=== PATIENT | female | born 1945 | race Caucasian/White ===

== ENCOUNTER → 2024-03-11 | Outpatient (CLI) | payer MEDICARE, OTHER, SELFPAY ==
[2024-03-11 17:54] LABS: Amphetamine/Methamp Scrn,U Negative (Negative); Barbiturate Screen,Urine Negative (Negative); Benzodiazepines Screen,Urine Negative (Negative); Benzoylecgonine Screen, Ur Negative (Negative); Fentanyl Screen,Urine Negative (Negative); Opiate Screen,Urine Negative (Negative); THC Screen,Urine Negative (Negative)
== END | disposition home or self-care (01) ==
PROVIDERS: PCP Family Medicine; Referring Provider Family Medicine; Visit Provider Family Medicine
DX: Z79.891 Long term (current) use of opiate analgesic (principal)
CPT/HCPCS: 80307

== ENCOUNTER → 2024-03-16 | Outpatient (CLI) | payer MEDICARE, OTHER, SELFPAY ==
[2024-03-16 07:48] LABS: Collection Type, Urine Clean Catch
[2024-03-16 08:55] LABS: Basophils # (Auto) 0.1 Thou/mm3 (0.0-0.2); Basophils % (Auto) 1 % (0-2.5); Eosinophils # (Auto) 0.2 Thou/mm3 (0.0-0.5); Eosinophils % (Auto) 3 % (0-10); Hematocrit 30.8 % (36.0-46.0); Hemoglobin 9.6 g/dL (12.0-16.0); Immature Granulocytes % (Auto) 0 % (0-0); Immature Granulocytes Auto 0.03 Thou/mm3 (0.00-0.00); Lymphocytes # (Auto) 3.1 Thou/mm3 (1.0-4.8); Lymphocytes % (Auto) 41 % (10-50); Mean Corpuscular HGB Conc 31.2 g/dl (31.0-37.0); Mean Corpuscular Volume 71 fL (80-100); Monocytes # (Auto) 0.7 Thou/mm3 (0.0-0.8); Monocytes % (Auto) 10 % (0-12); Neutrophils # (Auto) 3.4 Thou/mm3 (1.8-7.7); Neutrophils % (Auto) 45 % (37-80); Nucleated Red Blood Cell % 0 /100 WBC (0); Platelet Count 434 Thou/mm3 (140-440); RDW Standard Deviation 44.8 fL (36.4-46.3); Red Blood Count 4.36 Miln/mm3 (4.00-5.20); White Blood Count 7.5 Thou/mm3 (3.6-11.0)
[2024-03-16 09:16] LABS: Bilirubin,Urine Negative (Negative); Blood,Urine Negative (Negative); Clarity,Urine Clear (Clear/Hazy); Color,Urine Lt-Yellow (Lt Yel-Yel); Glucose, Urine Negative (Negative); Ketones,Urine Negative (Negative); Leukocyte Esterase,Urine Negative (Negative); Nitrite,Urine Negative (Negative); PH,Urine 6.5 (5.0-7.0); Protein,Urine Negative (Neg - Trace); Specific Gravity,Urine 1.014 (1.001-1.035); Urobilinogen,Urine Negative mg/dL (0.0-1.0)
[2024-03-16 09:17] LABS: Bacteria,Urine 1+; RBC,Urine 1 /hpf (0-3); Squamous Epithelial Cell,Urine 2 /hpf (0-5); WBC,Urine 3 /hpf (0-5)
[2024-03-16 09:20] LABS: Glucose Estimated Average 131 mg/dL (80-131); Hemoglobin A1C 6.2 % Hgb (4.8-6.0)
[2024-03-16 09:20] LABS: Culture Indicated,Urine Yes
[2024-03-16 09:34] LABS: Alanine Aminotransferase 15 U/L (10-49); Albumin, Serum 4.6 gm/dL (3.4-4.8); Albumin/Globulin Ratio 1.8 (1.2-2.2); Alkaline Phosphatase 47 U/L (46-116); Anion Gap 9 (7-16); Aspartate Amino Transferase 22 U/L (0-34); BUN/Creatinine Ratio 19 Ratio (12-20); Bilirubin,Total 0.4 mg/dL (0.3-1.2); Blood Urea Nitrogen 17 mg/dL (9-23); Calcium 9.8 mg/dL (8.3-10.6); Calcium (Corrected) 9.8 mg/dL (8.5-10.1); Carbon Dioxide 26.5 mMol/L (20.0-31.0); Cardiac Risk Estimate 2.5 RATIO (3.7-5.6); Chloride 100 mMol/L (98-107); Cholesterol 142 mg/dL (132-200); Creatinine (Component) 0.9 mg/dL (0.6-1.3); Free T4 (Free Thyroxine) 1.39 ng/dL (0.89-1.76); Globulin 2.5 gm/dL (2.3-3.5); Glucose 96 mg/dL (74-106); HDL Cholesterol 56 mg/dL (40-60); LDL Cholesterol,Calculated 59 mg/dL (0-130); Osmolality,Calculated 271 (275-295); Potassium 3.7 mMol/L (3.4-5.1); Sodium 135 mMol/L (136-145); Thyroid Stimulating Hormone 3.25 uIU/mL (0.55-4.78); Total Protein 7.1 gm/dL (5.7-8.2); Triglycerides 136 mg/dL (30-150); eGFR > 60 See Note
[2024-03-19 07:00] LABS: T3,Total* 101 ng/dL (76-181)
[2024-03-22 06:43] LABS: Fecal Globin Result NOT DETECTED (NOT DETECTED)
== END | disposition home or self-care (01) ==
PROVIDERS: PCP Family Medicine; Referring Provider Physician Assistant; Visit Provider Physician Assistant
DX: E03.9 Hypothyroidism, unspecified (principal)
CPT/HCPCS: 36415; 80053; 80061; 81001; 82274; 83036; 84439; 84443; 84480; 85025; 87077; 87086; 87186; G0328

== ENCOUNTER 2024-07-12 15:18 | Emergency (ER) | payer MEDICARE, SELFPAY ==
[2024-07-12 15:21] VITALS: BP 129/78; PULSE 77; RESP 19; TEMP 36.9; O2SAT 95
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
--- NOTE | 2024-07-12 15:46 | EKG_ITS ---
[facility] Test Date: 2024-07-12 Pat Name: DAVID LIUS Department: Room: - Gender: Female Production Grip: : 1945 Requested By: Juan Escamilla Order Number: [id number] Reading MD: Juan Escamilla Measurements Intervals [place] Rate: 75 P: -12 [place]: 192 QRS: 10 QRSD: 153 T: 21 QT: 434 QTc: 487 Interpretive Statements SINUS RHYTHM WITH OCCASIONAL SUPRAVENTRICULAR PREMATURE COMPLEXES RIGHT BUNDLE BRANCH BLOCK [120+ ms QRS DURATION, UPRIGHT V1, 40+ ms S IN I/aVL/V4/V5/V6] Compared to ECG 07/27/2021 20:07:30 First degree AV block no longer present Indeterminate axis no longer present /store/S0/[id number].pdf
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
[2024-07-12] MEDS: MORPHINE SULF INJ 10 MG/ML VIAL 4 MG IVP (15:55)
[2024-07-12 16:00] VITALS: BMI 25.0
[2024-07-12 16:16] LABS: Basophils # (Auto) 0.1 Thou/mm3 (0.0-0.2); Basophils % (Auto) 1 % (0-2.5); Eosinophils # (Auto) 0.2 Thou/mm3 (0.0-0.5); Eosinophils % (Auto) 3 % (0-10); Hematocrit 27.1 % (36.0-46.0); Immature Granulocytes % (Auto) 0 % (0-0); Immature Granulocytes Auto 0.02 Thou/mm3 (0.00-0.00); Lymphocytes # (Auto) 2.6 Thou/mm3 (1.0-4.8); Lymphocytes % (Auto) 36 % (10-50); Mean Corpuscular HGB Conc 30.3 g/dl (31.0-37.0); Mean Corpuscular Volume 69 fL (80-100); Monocytes # (Auto) 0.7 Thou/mm3 (0.0-0.8); Monocytes % (Auto) 10 % (0-12); Neutrophils # (Auto) 3.5 Thou/mm3 (1.8-7.7); Neutrophils % (Auto) 49 % (37-80); Nucleated Red Blood Cell % 0 /100 WBC (0); Platelet Count 376 Thou/mm3 (140-440); RDW Standard Deviation 46.9 fL (36.4-46.3); Red Blood Count 3.91 Miln/mm3 (4.00-5.20); White Blood Count 7.2 Thou/mm3 (3.6-11.0)
[2024-07-12 16:23] LABS: Hemoglobin 8.2 g/dL (12.0-16.0)
[2024-07-12 16:28] LABS: Alanine Aminotransferase 15 U/L (10-49); Albumin, Serum 3.9 gm/dL (3.4-4.8); Albumin/Globulin Ratio 1.7 (1.2-2.2); Alkaline Phosphatase 48 U/L (46-116); Anion Gap 8 (7-16); Aspartate Amino Transferase 28 U/L (0-34); BUN/Creatinine Ratio 14 Ratio (12-20); Bilirubin,Total 0.2 mg/dL (0.3-1.2); Blood Urea Nitrogen 13 mg/dL (9-23); Calcium 8.5 mg/dL (8.3-10.6); Calcium (Corrected) 8.6 mg/dL (8.5-10.1); Carbon Dioxide 27.3 mMol/L (20.0-31.0); Chloride 104 mMol/L (98-107); Creatinine (Component) 0.9 mg/dL (0.6-1.3); Estimated Creatinine Clearance 47.1 mL/min (>60); Globulin 2.3 gm/dL (2.3-3.5); Glucose 105 mg/dL (74-106); Osmolality,Calculated 277 (275-295); Potassium 4.3 mMol/L (3.4-5.1); Sodium 139 mMol/L (136-145); Total Protein 6.2 gm/dL (5.7-8.2); eGFR > 60 See Note
[2024-07-12 16:36] LABS: INR 4.7 (0.9-1.3); Partial Thromboplastin Time 42.1 Seconds (22.0-36.0)
[2024-07-12 17:29] LABS: Prothrombin Time 46.4 Seconds (9.0-12.2)
[2024-07-12 18:35] VITALS: BP 147/74; PULSE 71; RESP 17; TEMP 36.5; O2SAT 95
[2024-07-12 18:58] VITALS: BP 147/74; PULSE 68; RESP 16; TEMP 36.7; O2SAT 99
== END 2024-07-12 18:58 | disposition home or self-care (01) ==
PROVIDERS: Registered Nurse General Practice; Emergency Provider Emergency Medicine
DX: S20.219A Contusion of unspecified front wall of thorax, initial encounter (principal); S30.1XXA Contusion of abdominal wall, initial encounter; S40.022A Contusion of left upper arm, initial encounter; S79.912A Unspecified injury of left hip, initial encounter; S19.9XXA Unspecified injury of neck, initial encounter; S09.90XA Unspecified injury of head, initial encounter; S80.12XA Contusion of left lower leg, initial encounter; S60.512A Abrasion of left hand, initial encounter; I49.1 Atrial premature depolarization; I45.10 Unspecified right bundle-branch block; F17.200 Nicotine dependence, unspecified, uncomplicated; I10 Essential (primary) hypertension; V43.52XA Car driver injured in collision with other type car in traffic accident, initial encounter; Y92.410 Unspecified street and highway as the place of occurrence of the external cause; Z79.01 Long term (current) use of anticoagulants
CPT/HCPCS: 36415; 70450; 71260; 72125; 73030; 73502; 74177; 80053; 85025; 85610; 85730; 93005; 96374; 99285; A4649; J2270; Q9967

== ENCOUNTER → 2024-11-23 | Outpatient (CLI) | payer MEDICARE, SELFPAY ==
[2024-11-23 09:02] LABS: Basophils # (Auto) 0.1 Thou/mm3 (0.0-0.2); Basophils % (Auto) 1 % (0-2.5); Eosinophils # (Auto) 0.2 Thou/mm3 (0.0-0.5); Eosinophils % (Auto) 2 % (0-10); Hematocrit 31.3 % (36.0-46.0); Hemoglobin 9.4 g/dL (12.0-16.0); Immature Granulocytes Auto 0.01 Thou/mm3 (0.00-0.00); Lymphocytes # (Auto) 2.4 Thou/mm3 (1.0-4.8); Lymphocytes % (Auto) 36 % (10-50); Mean Corpuscular HGB Conc 30.0 g/dl (31.0-37.0); Mean Corpuscular Hemoglobin 20.9 pg (25.0-35.0); Mean Corpuscular Volume 70 fL (80-100); Monocytes # (Auto) 0.8 Thou/mm3 (0.0-0.8); Monocytes % (Auto) 11 % (0-12); Neutrophils # (Auto) 3.2 Thou/mm3 (1.8-7.7); Neutrophils % (Auto) 49 % (37-80); Nucleated Red Blood Cell # 0.00 Thou/mm3 (0.00-0.00); Nucleated Red Blood Cell % 0 /100 WBC (0); Platelet Count 464 Thou/mm3 (140-440); RDW Standard Deviation 51.1 fL (36.4-46.3); Red Blood Count 4.50 Miln/mm3 (4.00-5.20); White Blood Count 6.6 Thou/mm3 (3.6-11.0)
[2024-11-23 09:12] LABS: Glucose Estimated Average 131 mg/dL (80-131); Hemoglobin A1C 6.2 % Hgb (4.8-6.0)
[2024-11-23 09:32] LABS: Alanine Aminotransferase 9 U/L (10-49); Albumin, Serum 4.2 gm/dL (3.4-4.8); Albumin/Globulin Ratio 1.8 (1.2-2.2); Alkaline Phosphatase 51 U/L (46-116); Anion Gap 7 (7-16); Aspartate Amino Transferase 19 U/L (0-34); BUN/Creatinine Ratio 15 Ratio (12-20); Bilirubin,Total 0.3 mg/dL (0.3-1.2); Blood Urea Nitrogen 15 mg/dL (9-23); Calcium 9.8 mg/dL (8.3-10.6); Calcium (Corrected) 9.8 mg/dL (8.5-10.1); Carbon Dioxide 26.5 mMol/L (20.0-31.0); Chloride 106 mMol/L (98-107); Creatinine (Component) 1.0 mg/dL (0.6-1.3); Globulin 2.4 gm/dL (2.3-3.5); Glucose 110 mg/dL (74-106); Osmolality,Calculated 279 (275-295); Potassium 4.1 mMol/L (3.4-5.1); Sodium 139 mMol/L (136-145); Total Protein 6.6 gm/dL (5.7-8.2); eGFR 58 See Note
== END | disposition home or self-care (01) ==
LOC: COPL 07:57
PROVIDERS: PCP Family Medicine; Referring Provider Family Medicine; Visit Provider Family Medicine
DX: E11.9 Type 2 diabetes mellitus without complications (principal); I95.2 Hypotension due to drugs; G90.09 Other idiopathic peripheral autonomic neuropathy; E03.9 Hypothyroidism, unspecified; D64.9 Anemia, unspecified
CPT/HCPCS: 36415; 80053; 83036; 85025

== ENCOUNTER 2024-12-31 12:39 | Emergency (ER) | payer MEDICARE, SELFPAY ==
--- NOTE | 2024-12-31 12:42 | XR_ITS ---
Examination: CT brain head without contrast. 2-D sagittal coronal reconstructions Date and time of exam: 12/31/2024 at 1:34 p.m. CTDI: vol (mGy): 46.6 DLP: (mGycm): 945 Technique: Multiple CT axial sections of the brain have been obtained, 5 mm slice thickness. Contrast has not been administered. 2-D sagittal, coronal reconstructions have been obtained Low dose protocols were performed. One or more of the following dose reduction techniques were used; automated exposure control, adjustment of the mA and/or KV according to patient size, use of iterative reconstruction technique. FINDINGS: BRAIN PARENCHYMA: No evidence for acute large vessel transcortical ischemic infarction, hemorrhage, mass, or midline shift. 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 No mass in the region. Previously measured density represents occipital lobe cortex. Redemonstration of mild global cerebral involutional changes are present. Nonspecific severe bilateral cerebral white matter hypoattenuation most likely represents sequela of chronic ischemic microangiopathy in this age demographic. The brain appears stable. No cerebellar tonsillar ectopia. No apparent acute abnormality of the cerebellum. VENTRICLES / EXTRA-AXIAL SPACES: No hydrocephalus, extra-axial hematoma or mass. CALVARIUM: No skull fracture or concerning focal lesion. Hyperostosis frontalis interna noted. SINUSES: No significant opacification of the paranasal sinuses. The visualized mastoid air cells are clear. OTHER EXTRACRANIAL STRUCTURES: No scalp hematoma. Right TMJ osteoarthrosis. Sequela of ocular lens replacement surgery noted. IMPRESSION: Negative noncontrast head CT for acute intracranial abnormality. No significant acute traumatic findings. Chronic ancillary findings as above. No significant change since prior exam.
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
--- NOTE | 2024-12-31 12:42 | XR_ITS ---
CLINICAL INDICATION: fall TECHNIQUE: XR chest 1V COMPARISON: Chest radiographs 07/17/2017. CT chest abdomen and pelvis 07/12/2024 FINDINGS: The cardiomediastinal silhouette is within normal limits of size for portable technique and patient's semiupright positioning. Redemonstration of remote median sternotomy sequela with aortic valve prosthesis. Atherosclerotic calcifications are present at the aortic arch. No airspace consolidation, pleural effusion or pneumothorax. Mild diffuse prominence of the bilateral pulmonary interstitium in the mid to lower lung zones could be due to edema/inflammation and/or potentially mild fibrosis. Degenerative changes of the skeletal structures. No apparent acute osseous abnormality. ACDF sequela noted. IMPRESSION: No evidence for acute traumatic findings on single view chest radiograph. Mild diffuse prominence of the bilateral pulmonary interstitium in the mid to lower lung zones could be due to edema/inflammation and/or potentially mild fibrosis.
--- NOTE | 2024-12-31 12:43 | EKG_ITS ---
[facility] Test Date: 2024-12-31 Pat Name: DAVID LUIS Department: Room: - Gender: Female Motorcycle Technician: : 1945 Requested By: Jose Juan Whitt Order Number: [id number] Reading MD: Jose Juan Whitt Measurements Intervals [place] Rate: 52 P: -16 CT: 214 QRS: 11 QRSD: 179 T: -9 QT: 470 QTc: 439 Interpretive Statements SINUS BRADYCARDIA WITH FIRST DEGREE AV BLOCK RIGHT BUNDLE BRANCH BLOCK [120+ ms QRS DURATION, UPRIGHT V1, 40+ ms S IN I/aVL/V4/V5/V6] Compared to ECG 07/12/2024 15:47:11 First degree AV block now present Sinus rhythm no longer present /store/S0/[id number]/[id number]
--- NOTE | 2024-12-31 12:44 | PD.EDFALL ---
ED Fall Injury RME/HPI General Chief Complaint: Weakness Stated Complaint: WEAKNESS, HYPOTENSION Time Seen by Provider: 12/31/24 12:41 Arrival date/time: 12/31/24 12:39 79-year-old female patient came in for evaluation regarding headache. Patient sustained a ground-level yesterday while in the garage, landing on her bottom and left side of the head, denies any loss of consciousness denies any nausea or vomiting, was helped by her to go back to bed, and this morning woke up with pain to the left side of the head, headache, neck pain, and right hip pain. Patient is alert and oriented x 3, GCS of 15, patient is taking Coumadin. History include open heart surgery, hypertension diabetes mellitus Related Data Home Medications ?Medication ?Instructions ?Recorded ?Confirmed Levothyroxine * (SYNTHROID *) 100 mcg PO DAILY #0 tabs 12/06/16 07/28/21 glipizide 5 mg tablet 5 mg PO DAILY #0 tabs 12/06/16 07/28/21 pravastatin 20 mg tablet 20 mg PO HS #0 tabs 12/06/16 07/28/21 (Pravachol) pregabalin 100 mg capsule (Lyrica) 100 mg PO TID #0 caps 12/06/16 07/28/21 warfarin 6 mg tablet (Coumadin) 6 mg PO DAILY #0 tabs 12/06/16 07/28/21 albuterol sulfate 90 mcg/actuation 2 puff IH Q4HR PRN Shortness Of 03/21/17 07/28/21 breath activated powder inhaler Breath ##0 (ProAir RespiClick) ferrous sulfate 325 mg (65 mg 325 mg PO BID 07/28/21 07/28/21 iron) capsule,extended release metformin 1,000 mg tablet 1,000 mg BID 07/28/21 07/28/21 omeprazole 20 mg capsule,delayed 20 mg DAILY 07/28/21 07/28/21 release Previous Rx's ?Medication ?Instructions ?Recorded enoxaparin 80 mg/0.8 mL 80 mg (0.8 mL) subcut BID #8 mL 08/02/21 subcutaneous syringe meloxicam 7.5 mg tablet 7.5 mg PO QDAY #10 tabs 07/12/24 cefuroxime axetil 500 mg tablet 500 mg PO BID #14 tabs 12/31/24 Allergies Allergy/AdvReac Type Severity Reaction Status Date / Time carvedilol Allergy Mild GI UPSET Verified 07/27/21 19:23 TAPE AdvReac Mild RASH, SKIN Uncoded 07/27/21 19:23 BREAKDOWN Review of Systems Review of Systems Narrative Review of Systems: Review of system reviewed and within normal limits except mentioned in HPI ED Exam Narrative Physical exam: VITAL SIGNS: Reviewed. GENERAL APPEARANCE: Alert and interactive, follows commands, no acute distress, HEAD AND FACE: Non-traumatic. Tenderness to the left side of the head ENT: PERRL, pink conjunctivitis, eyelid no trauma, Mucous membrane moist. NECK: Supple, posterior neck tenderness, no nuchal rigidity. CHEST: No tenderness, no crepitus, no paradoxical movement, no retractions. LUNGS: Clear, well ventilated, symmetric, no rales, no wheezing, no ronchi, no stridor, good breath sounds bilaterally. HEART: Regular rate, regular rhythm, no murmur, no gallops. ABDOMEN: Soft, positive bowel sounds, nondistended, no guarding, nontender, no rebound, no masses, RECTAL: Deferred. GENITAL: Deferred. NEUROLOGICAL: Gross motor function intact sensory function intact, Appropriate for age. MUSCULOSKELETAL: low back nontender, full range of motion. EXTREMITIES: Right hip tenderness,, full range of motion. SKIN: Color pink, dry, no rash, no lacerations, no abrasions, no contusions. LYMPHATICS: Deferred. Course Quality Measures none Orders Category Date Time Status EKG (ED ONLY) *Do not use* NOW Care 12/31/24 12:[address] cervical spine wo con Stat Exams 12/31/24 12:[address] head/brain wo con Stat Exams 12/31/24 12:42 Completed EKG (ED Only) Stat Exams 12/31/24 12:43 Draft XR chest 1V Stat Exams 12/31/24 12:42 Completed XR hand LT 2V Stat Exams 12/31/24 14:36 Completed XR hip RT w pelvis 2-3V Stat Exams 12/31/24 12:42 Completed CBC Stat Lab 12/31/24 13:22 Completed Comprehensive Metabolic Panel Stat Lab 12/31/24 13:22 Completed Partial Thromboplastin Time Stat Lab 12/31/24 13:06 Completed Prothrombin Time with INR Stat Lab 12/31/24 13:06 Completed Troponin I Stat Lab 12/31/24 13:22 Completed Urinalysis, C/S if Indicated Stat Lab 12/31/24 13:57 Completed Urine Culture Stat Lab 12/31/24 13:57 Received cefTRIAXone/D5w 1gm IV premix [Rocephin/D5w 1gm IV Med 12/31/24 14:31 Discontinued premix] 1 gm in 50 ml IV X1 Vital Signs Vital signs: Vital Signs Temperature 97.8 F 12/31/24 13:06 Pulse Rate 52 L 12/31/24 13:06 Respiratory Rate 16 12/31/24 13:06 Blood Pressure 132/61 H 12/31/24 13:06 Pulse Oximetry (%) 94 L 12/31/24 13:06 Oxygen Delivery Method Room Air 12/31/24 13:06 Fall MDM Narrative MDM Narrative:: 79-year-old female patient came in for evaluation regarding headache. Patient sustained a ground-level yesterday while in the garage, landing on her bottom and left side of the head, denies any loss of consciousness denies any nausea or vomiting, was helped by her to go back to bed, and this morning woke up with pain to the left side of the head, headache, neck pain, and right hip pain. Patient is alert and oriented x 3, GCS of 15, patient is taking Coumadin. History include open heart surgery, hypertension diabetes mellitus EKG showed sinus rhythm bradycardia, ventricular rate of 52 bpm, no ST segment elevation or depression noted. CT scan of the head came back unremarkable CT scan of the neck came back unremarkable. Chest x-ray came back unremarkable x-ray of the hand came back unremarkable x-ray of the hip came back unremarkable x-ray of the chest came back unremarkable results discussed with the patient. Patient urinalysis positive for UTI patient received ceftriaxone IV and IV fluids She is stable for discharge home Patient data External records reviewed:: None Clinical information provided by:: patient Social determinants that could affect healthcare access:: none Patient has the following chronic illnesses:: Hypertension CAD, open heart surgery How is presenting disease/condition affected by chronic disease/condition?: exacerbated by Evaluation data The following diagnostics were reviewed and interpreted by me:: lab results, radiology exam(s) and EKG tracing(s) Lab and/or radiology exams considered but not ordered:: None Interpretation Summary: See MDM Medications / Prescriptions Medications or Prescriptions considered but not ordered:: None Medication administrations:: Medication Administration History Discontinued Medications Ceftriaxone Sodium/Dextrose (Rocephin/D5w 1gm Iv Premix) 1 gm in 50 mls @ 100 mls/hr IV X1 ONE Stop: 12/31/24 15:00 Last Admin: 12/31/24 15:53 Dose: 100 mls/hr Documented By: VG Ceftriaxone IV, IV fluids Consultations Consultation(s) initiated? (list below): No Diagnosis Fall Differential Diagnosis: other (Fall, neck pain, UTI, hip pain, hand pain) Most likely diagnosis given after review of the tests above:: Fall, neck pain, UTI, hip pain, hand pain Admission Indicated Admission indicated?: not indicated Admission Request Was there a request for admission?: No Disposition Plan Disposition Plan: Discharge Discharge Attestation Discharge Attestation: The patient was given an opportunity to ask questions and understood the discharge instructions. Discharge instructions specifically effects, indications for sooner follow up or return to the emergency department, and the expected course of current diagnosis. Patient condition: Stable Discharge Plan Plan Patient Disposition: HOME (Self Care) Discharge Disposition comment: Stable Prescriptions/Referrals Prescriptions/Med Rec: New cefuroxime axetil 500 mg tablet 500 mg PO BID Qty: 14 0RF No Action warfarin [Coumadin] 6 MG tablet 6 mg PO DAILY Qty: 0 pravastatin [Pravachol] 20 MG tablet 20 mg PO HS Qty: 0 glipizide 5 MG tablet 5 mg PO DAILY Qty: 0 pregabalin [Lyrica] 100 MG capsule 100 mg PO TID Qty: 0 Levothyroxine * (SYNTHROID *) 100 MCG tablet 100 mcg PO DAILY Qty: 0 ProAir RespiClick 90 MCG aerosol powdr breath activated 2 puff IH Q4HR PRN (Reason: Shortness Of Breath) Qty: 0 ferrous sulfate 325 mg (65 mg iron) Capsule, Extended Release 325 mg PO BID metformin 1,000 mg tablet 1,000 mg BID Patient Comments: TAKE 1 TABLET BY MOUTH TWICE DAILY omeprazole 20 mg capsule,delayed release(DR/EC) 20 mg DAILY Patient Comments: TAKE 1 CAPSULE BY MOUTH DAILY enoxaparin 80 mg/0.8 mL Syringe 80 mg subcut BID Qty: 8 0RF meloxicam 7.5 mg tablet 7.5 mg PO QDAY Qty: 10 0RF Referrals: Samantha Ivan MD [Primary Care Provider, Family Practice] - In 1 week Problem List Clinical Impression: Fall, UTI (urinary tract infection) Patient/Caregiver Discharge Instructions Discharge Activity: activity as tolerated Education Materials: Understanding Urinary Tract ... Additional Instructions: Thank you for the opportunity for serving you today. You are stable for discharged . You are advised to: Follow-up with your PCP in 1 to 2 days Return to ED for worsening of symptoms Increase oral fluids Take medication as prescribed Print Language: Polish Stand Alone Forms: [facility] Award Info., Patient Portal Info Letter
[2024-12-31 12:55] VITALS: PULSE 55; RESP 18; O2SAT 97; BMI 25.5
[2024-12-31 13:06] VITALS: BP 132/61; PULSE 52; RESP 16; TEMP 36.6; O2SAT 94
[2024-12-31 13:42] LABS: INR 1.9 (0.9-1.3); Partial Thromboplastin Time 27.0 Seconds (22.0-36.0); Prothrombin Time 19.1 Seconds (9.0-12.2)
[2024-12-31 14:01] LABS: Collection Type, Urine Clean Catch
[2024-12-31 14:01] LABS: Alanine Aminotransferase 7 U/L (10-49); Albumin, Serum 4.1 gm/dL (3.4-4.8); Albumin/Globulin Ratio 2.0 (1.2-2.2); Alkaline Phosphatase 47 U/L (46-116); Anion Gap 8 (7-16); Aspartate Amino Transferase 19 U/L (0-34); BUN/Creatinine Ratio 12 Ratio (12-20); Bilirubin,Total 0.3 mg/dL (0.3-1.2); Blood Urea Nitrogen 12 mg/dL (9-23); Calcium 9.0 mg/dL (8.3-10.6); Calcium (Corrected) 9.0 mg/dL (8.5-10.1); Carbon Dioxide 23.6 mMol/L (20.0-31.0); Chloride 108 mMol/L (98-107); Creatinine (Component) 1.0 mg/dL (0.6-1.3); Estimated Creatinine Clearance 43.8 mL/min (>60); Globulin 2.1 gm/dL (2.3-3.5); Glucose 128 mg/dL (74-106); Osmolality,Calculated 281 (275-295); Potassium 3.8 mMol/L (3.4-5.1); Sodium 140 mMol/L (136-145); Total Protein 6.2 gm/dL (5.7-8.2); Troponin I < 0.020 ng/mL (0.0-0.045); eGFR 58 See Note
[2024-12-31 14:12] LABS: Bacteria,Urine 4+; Bilirubin,Urine Negative (Negative); Blood,Urine Negative (Negative); Clarity,Urine Clear (Clear/Hazy); Color,Urine Yellow (Lt Yel-Yel); Culture Indicated,Urine Yes; Glucose, Urine Negative (Negative); Ketones,Urine Negative (Negative); Leukocyte Esterase,Urine Positive (Negative); Nitrite,Urine Positive (Negative); PH,Urine 5.5 (5.0-7.0); Protein,Urine Negative (Neg - Trace); RBC,Urine < 1 /hpf (0-3); Specific Gravity,Urine 1.013 (1.001-1.035); Squamous Epithelial Cell,Urine 2 /hpf (0-5); Urobilinogen,Urine Negative mg/dL (0.0-1.0); WBC,Urine 15 /hpf (0-5)
--- NOTE | 2024-12-31 14:36 | XR_ITS ---
Examination: Hand, left Technique: Hand AP, oblique, lateral 3 views Date and time of exam: 12/31/2024 at 2:35 p.m. INDICATION: Ground-level fall, left hand pain COMPARISON: Left wrist radiographs 10/10/2021 FINDINGS: Diffuse osteopenia is present but there is no evidence for acute fracture or dislocation in the left hand. Previously visualized distal radial metaphyseal fracture has healed. There are mild osteoarthritic changes noted, most pronounced at the triscaphe joint. No erosions. No significant soft tissue swelling. IMPRESSION: No evidence for acute fracture or dislocation of the left hand.
[2024-12-31 15:08] LABS: Basophils # (Auto) 0.1 Thou/mm3 (0.0-0.2); Basophils % (Auto) 1 % (0-2.5); Eosinophils # (Auto) 0.1 Thou/mm3 (0.0-0.5); Eosinophils % (Auto) 1 % (0-10); Hematocrit 30.9 % (36.0-46.0); Hemoglobin 9.1 g/dL (12.0-16.0); Immature Granulocytes Auto 0.04 Thou/mm3 (0.00-0.00); Lymphocytes # (Auto) 1.8 Thou/mm3 (1.0-4.8); Lymphocytes % (Auto) 21 % (10-50); Mean Corpuscular HGB Conc 29.4 g/dl (31.0-37.0); Mean Corpuscular Hemoglobin 20.9 pg (25.0-35.0); Mean Corpuscular Volume 71 fL (80-100); Monocytes # (Auto) 0.7 Thou/mm3 (0.0-0.8); Monocytes % (Auto) 8 % (0-12); Neutrophils # (Auto) 5.9 Thou/mm3 (1.8-7.7); Neutrophils % (Auto) 69 % (37-80); Nucleated Red Blood Cell # 0.00 Thou/mm3 (0.00-0.00); Nucleated Red Blood Cell % 0 /100 WBC (0); Platelet Count 337 Thou/mm3 (140-440); RDW Standard Deviation 52.3 fL (36.4-46.3); Red Blood Count 4.36 Miln/mm3 (4.00-5.20); White Blood Count 8.5 Thou/mm3 (3.6-11.0)
[2024-12-31 15:12] VITALS: BP 155/71; PULSE 55; RESP 18; TEMP 36.4; O2SAT 98
[2024-12-31] MEDS: cefTRIAXone/D5w 1gm IV premix 1 GM/50 ML BAG IV (15:53)
[2024-12-31 16:10] VITALS: BP 125/81; PULSE 53; RESP 22; TEMP 36.4; O2SAT 92
[2024-12-31 17:26] VITALS: BP 138/80; PULSE 58; RESP 19; TEMP 36.6; O2SAT 95
== END 2024-12-31 17:27 | disposition home or self-care (01) ==
PROVIDERS: Nurse Practitioner Family; Emergency Provider Family Medicine; PCP Family Medicine
DX: N39.0 Urinary tract infection, site not specified (principal); M54.2 Cervicalgia; M25.551 Pain in right hip; E11.9 Type 2 diabetes mellitus without complications; I10 Essential (primary) hypertension; M79.642 Pain in left hand
CPT/HCPCS: 36415; 51701; 70450; 71045; 72125; 73120; 73502; 80053; 81001; 84484; 85025; 85610; 85730; 87077; 87086; 87186; 93005; 96365; 99283; J0696